=== PATIENT | female | born 1995 | race Hispanic/Latino ===

== ENCOUNTER 2025-05-12 08:37 | Emergency (ER) | payer OTHER, SELFPAY ==
[2025-05-12 09:06] VITALS: BP 121/86; PULSE 90; RESP 17; TEMP 36.2; O2SAT 99; BMI 32.5
--- NOTE | 2025-05-12 09:07 | DI.US.S_ITS ---
PROCEDURE: US ABDOMEN LIMITED INDICATIONS: Right groin to r/o hernia TECHNIQUE: Real-time focused scanning was performed of the inguinal region, with image documentation. COMPARISON: None. FINDINGS and IMPRESSION: No right inguinal hernia is seen sonographically. Approved by: Jonathan Smith M.D. on 05/12/2025 at 10:19
[2025-05-12 09:29] LABS: Add Manual Diff / Slide Review NO; Hematocrit 38.0 % (36-46); Hemoglobin 12.7 g/dL (12.0-16.0); Lymphocytes Absolute Auto 1200 /uL (1100-4500); Mean Corpuscular HGB Conc 33.4 % (30-36); Mean Corpuscular Hemoglobin 28.5 PG (26-34); Mean Corpuscular Volume 85.5 fL (80-100); Platelet Count 260 X10^3/uL (150-400)
[2025-05-12 09:46] LABS: Alanine Aminotransferase 29 IU/L (<35); Albumin 4.6 g/dL (3.5-5.0); Albumin Globulin Ratio 1.3 (1.0-2.8); Alkaline Phosphatase 60 U/L (38-126); Blood Urea Nitrogen 8 mg/dL (7-17); Calcium 9.0 mg/dL (8.4-10.2); Carbon Dioxide 25 mmol/L (22-32); Chloride 103 mmol/L (98-107); Estimated Glomerular Filt Rate > 60 mL/min (>60); Globulin 3.5 g/dL (1.7-4.1); Glucose 97 mg/dL (70-99); HEMOLYSIS < 15 (0-50); Potassium 4.1 mmol/L (3.4-5.1); Sodium 139 mmol/L (137-145); Total Protein 8.1 g/dL (6.3-8.2)
--- NOTE | 2025-05-12 10:38 | ED_ITS ---
HPI - Abdominal Pain General Chief Complaint: Abdominal Pain Stated Complaint: Hernia Groin area, pooping blood 1 day Time Seen by Provider: 05/12/25 08:40 Source: patient Mode of arrival: Family Vehicle History of Present Illness HPI narrative: Patient is a 29 year old female who presents with right groin bump and blood in stool. Past medical history significant for hemorrhoids. No significant past medical history. Patient states that she was moving her bed last when she noticed a bump in her right groin. She then had 2 episodes of blood in her stool. Denies any fevers, chills, nausea, vomiting. No chest pain, dyspnea, diaphoresis. Related Data Allergies Allergy/AdvReac Type Severity Reaction Status Date / Time melons Allergy throat Uncoded 05/12/25 09:07 swelling Review of Systems Review of Systems ROS Unobtainable: All systems reviewed & are unremarkable except as noted in HPI and below Patient History Social History Smoking Status: Former smoker Smoking Status: Former smoker tobacco type: cigarettes and vaping Exam Narrative Exam Narrative: Vitals:? Afebrile, all other vitals within normal range. Gen:? Well-developed, well-nourished, no acute distress Cards:? Regular, no murmurs, rubs, gallops Pulm:? No increased work of breathing, and expiratory wheezing in upper lobes Abd:? Soft, nondistended, nontender Groin: No visible masses, lesions, overlying skin changes. Rectum: Rectal exam with skin tag at 6:00 a.m., no fissures or blood noted. Did not perform MELA. Ext:? No peripheral edema in bilateral lower extremity Neuro:? A&O x4, cranial nerves grossly intact, moving all 4 extremities spontaneously Psych:? Appropriate Initial Vital Signs Initial Vital Signs: Vital Signs Temperature 97.2 F L 05/12/25 09:06 Pulse Rate 90 05/12/25 09:06 Respiratory Rate 17 05/12/25 09:06 Blood Pressure 121/86 05/12/25 09:06 Pulse Oximetry 99 05/12/25 09:06 Oxygen Delivery Method Room Air 05/12/25 09:06 Course Orders Ordered: ED Orders 05/12/25 09:07 US abdomen limited Stat 05/12/25 09:17 CBC Auto Diff [Complete Blood Count AUTO DIFF] Stat CMP [Comprehensive Metabolic Panel] Stat Vital Signs Vital signs: Vital Signs - 8 hr 05/12/25 09:06 Temperature 97.2 F L Pulse Rate 90 Respiratory Rate 17 Blood Pressure 121/86 Pulse Oximetry 99 Oxygen Delivery Method Room Air MDM - Abdominal Pain Lab Data 05/12/25 09:17 05/12/25 09:17 Labs: Lab Results 05/12/25 Range/Units 09:17 WBC 6.2 (4.5-11.0) X10^3/uL RBC 4.44 (4.0-5.2) X10^6/uL Hgb 12.7 (12.0-16.0) g/dL Hct 38.0 (36-46) % MCV 85.5 (80-100) fL MCH 28.5 (26-34) PG MCHC 33.4 (30-36) % RDW 12.8 (11.6-14.8) % Plt Count 260 (150-400) X10^3/uL Neut % (Auto) 62.5 (50-75) % Lymph % (Auto) 18.8 L (25-40) % [place] % (Auto) 15.5 H (3-14) % Eos % (Auto) 3.0 (2-4) % Baso % (Auto) 0.2 (0-2) % Neut # (Auto) 3900 (1457-6715) /uL Lymph # (Auto) 1200 (4382-2966) /uL [place] # (Auto) 1000 H (0-900) /uL Eos # (Auto) 200 (0-450) /uL Baso # (Auto) 0 (0-100) /uL Sodium 139 (137-145) mmol/L Potassium 4.1 (3.4-5.1) mmol/L Chloride 103 (98-107) mmol/L Carbon Dioxide 25 (22-32) mmol/L BUN 8 (7-17) mg/dL Creatinine 0.74 (0.52-1.04) mg/dL Estimated GFR > 60 (>60) mL/min BUN/Creatinine Ratio 10.8 (6-22) Glucose 97 (70-99) mg/dL Calcium 9.0 (8.4-10.2) mg/dL Total Bilirubin 0.5 (0.2-1.3) mg/dL AST 29 (14-36) IU/L ALT 29 (<35) IU/L Alkaline Phosphatase 60 (38-126) U/L Total Protein 8.1 (6.3-8.2) g/dL Albumin 4.6 (3.5-5.0) g/dL Globulin 3.5 (1.7-4.1) g/dL Albumin/Globulin Ratio 1.3 (1.0-2.8) Imaging Data US - abdomen: Radiologist's Impression: PROCEDURE: US ABDOMEN LIMITED INDICATIONS: Right groin to r/o hernia TECHNIQUE: Real-time focused scanning was performed of the inguinal region, with image documentation. COMPARISON: None. FINDINGS and IMPRESSION: No right inguinal hernia is seen sonographically. Approved by: Jonathan Smith M.D. on 05/12/2025 at 10:19 MDM Narrative Medical decision making narrative: Patient is a 29-year-old female with a history of hemorrhoids who presents with right groin mass and 2 episodes of blood in her stool. EMR Review: No documents in EMR to review. Differential diagnosis: Hernia, lipoma, internal versus external hemorrhoid, anal fissure, anal fistula, anorectal abscess, pilonidal cyst, other. Labs: CBC without leukocytosis, left shift, no anemia. Platelets are normal. CMP are normal. Images: Ultrasound without sonographic evidence of a hernia. EKG: Not indicated. Consults: Not indicated. ED Course: Patient presented hemodynamically stable. Physical exam findings was not consistent with a hernia and rectal exam was not concerning. Labs were not concerning. Ultrasound did not reveal a hernia. The patient is stable for discharge home. Ultrasound shows no evidence of hernia, and laboratory studies are reassuring. Symptoms are most consistent with benign anorectal pathology. The patient was advised on supportive care, including sitz baths, hydration, fiber supplementation, and avoidance of straining. Strict return precautions were reviewed, including worsening pain, fever, increasing rectal bleeding, inability to pass stool, or development of a new or enlarging groin mass. She verbalized understanding and agreement with the plan and will follow up with her primary care provider for ongoing evaluation and management. Discharge Plan Departure Patient Disposition: Home Clinical Impression: Groin discomfort, Hematochezia Activity Restrictions/Additional Instructions: You were seen in the emergency department for concerns of a right groin hernia and blood in your stool. In the ER: -- Blood counts were normal -- Your physical exam of your rectum was not concerning -- Utrasound did not reveal a hernia in your right groin Recommend: -- Follow up with your primary care physician for both groin and blood in your stool -- Return to the ER if you develop any new or worsening symptoms to include severe right groin pain, fevers, chills, nausea, vomiting -- Persistent blood in your stool leading to chest pain, shortness of breath, lightheadedness, fainting Stand Alone Forms: Patient Portal/API
[2025-05-12 11:35] VITALS: BP 123/74; PULSE 78; RESP 18; O2SAT 99
== END 2025-05-12 11:36 | disposition home or self-care (01) ==
PROVIDERS: Emergency Provider Student in an Organized Health Care Education/Training Program
DX: R10.31 Right lower quadrant pain (principal); K92.1 Melena
CPT/HCPCS: 36415; 76705; 80053; 85025; 99281; 99283